=== PATIENT | male | born 1985 | race Caucasian/White ===

== ENCOUNTER 2018-04-28 14:20 | Observation (INO) | payer OTHER ==
[~2018-04-28] VITALS: Ht 170.2 cm; Wt 97.5 kg
[~2018-04-28 14:20] MED LIST changes: -GENVOYA TABLET1 EACH PO; -HYDR1TAB94 PO; -LEVFLO500 PO; -PREZISTA800 MG PO
[2018-04-28 14:46] LABS: BASOPHILS ABSOLUTE AUTO 0.09 K/mm3 (0.00-0.23); BASOPHILS PERCENT AUTO 1 % (0-2); EOSINOPHILS ABSOLUTE AUTO 0.21 K/mm3 (0.00-0.68); EOSINOPHILS PERCENT AUTO 2 % (0-6); Hematocrit 42.4 % (37.0-53.0); Hemoglobin 14.7 g/dL (13.5-17.5); IMMATURE GRAN ABSOLUTE AUTO 0.04 K/mm3 (0.00-0.10); IMMATURE GRAN PERCENT AUTO 0 % (0-1); LYMPHOCYTES ABSOLUTE AUTO 2.57 K/mm3 (0.84-5.20); LYMPHOCYTES PERCENT AUTO 27 % (21-46); MONOCYTES ABSOLUTE AUTO 0.81 K/mm3 (0.16-1.47); MONOCYTES PERCENT AUTO 8 % (4-13); Mean Corpuscular HGB 30.4 pg (26.0-34.0); Mean Corpuscular HGB Conc 34.7 g/dL (31.5-36.5); Mean Corpuscular Volume 88 fL (80-100); Mean Platelet Volume 9.7 fL (9.1-12.4); NEUTROPHILS ABSOLUTE AUTO 5.99 K/mm3 (1.96-9.15); NEUTROPHILS PERCENT AUTO 62 % (41-73); Platelet Count 224 K/mm3 (150-400); RDW Coefficient Variation 12.1 % (11.7-14.2); RDW Standard Deviation 38.7 fL (35.1-46.3); Red Blood Cell Count 4.84 M/mm3 (4.30-5.90); White Blood Cell Count 9.71 K/mm3 (4.00-11.30)
[2018-04-28] MEDS ORDERED: GENVOYA TABLET1 EACH PO (15:01)
[2018-04-28] MEDS ORDERED: PREZISTA800 MG PO (15:02)
[2018-04-28 15:03] LABS: Alanine Aminotransfer (ALT/SGP 21 U/L (12-78); Albumin, Blood 3.4 g/dL (3.4-5.0); Albumin/Globulin Ratio 0.7 (0.8-1.8); Alk Phos 90 U/L (50-136); Anion Gap 8 mmol/L (6-16); Aspartate Aminotrans (AST/SGOT 16 U/L (12-37); Bilirubin, Total 0.3 mg/dL (0.1-1.0); Blood Urea Nitrogen 12 mg/dL (8-24); Bun/Creatinine Ratio 8.7 (12.0-20.0); CO2, Blood 28 mmol/L (21-32); Calcium, Blood 8.3 mg/dL (8.5-10.1); Chloride, Blood 103 mmol/L (98-108); Creatinine, Blood 1.38 mg/dL (0.60-1.20); Globulin, Blood 4.7 g/dL (2.2-4.0); Glomerular Filtration Rate >60 (60-); Glucose, Blood 89 mg/dL (70-99); Potassium, Blood 3.4 mmol/L (3.5-5.5); Sodium, Blood 139 mmol/L (136-145); Total Protein, Blood 8.1 g/dL (6.4-8.2)
[2018-04-29 04:38] LABS: BASOPHILS ABSOLUTE AUTO 0.02 K/mm3 (0.00-0.23); BASOPHILS PERCENT AUTO 0 % (0-2); EOSINOPHILS ABSOLUTE AUTO 0.01 K/mm3 (0.00-0.68); EOSINOPHILS PERCENT AUTO 0 % (0-6); Hematocrit 37.4 % (37.0-53.0); Hemoglobin 12.9 g/dL (13.5-17.5); IMMATURE GRAN ABSOLUTE AUTO 0.06 K/mm3 (0.00-0.10); IMMATURE GRAN PERCENT AUTO 1 % (0-1); LYMPHOCYTES ABSOLUTE AUTO 1.18 K/mm3 (0.84-5.20); LYMPHOCYTES PERCENT AUTO 11 % (21-46); MONOCYTES ABSOLUTE AUTO 0.16 K/mm3 (0.16-1.47); MONOCYTES PERCENT AUTO 2 % (4-13); Mean Corpuscular HGB 30.3 pg (26.0-34.0); Mean Corpuscular HGB Conc 34.5 g/dL (31.5-36.5); Mean Corpuscular Volume 88 fL (80-100); Mean Platelet Volume 9.7 fL (9.1-12.4); NEUTROPHILS ABSOLUTE AUTO 9.54 K/mm3 (1.96-9.15); NEUTROPHILS PERCENT AUTO 87 % (41-73); Platelet Count 196 K/mm3 (150-400); RDW Coefficient Variation 12.1 % (11.7-14.2); RDW Standard Deviation 38.9 fL (35.1-46.3); Red Blood Cell Count 4.26 M/mm3 (4.30-5.90); White Blood Cell Count 10.97 K/mm3 (4.00-11.30)
[2018-04-29 04:57] LABS: Anion Gap 7 mmol/L (6-16); Blood Urea Nitrogen 10 mg/dL (8-24); Bun/Creatinine Ratio 8.6 (12.0-20.0); CO2, Blood 28 mmol/L (21-32); Calcium, Blood 8.2 mg/dL (8.5-10.1); Chloride, Blood 106 mmol/L (98-108); Creatinine, Blood 1.16 mg/dL (0.60-1.20); Glomerular Filtration Rate >60 (60-); Glucose, Blood 163 mg/dL (70-99); Sodium, Blood 141 mmol/L (136-145)
[2018-04-29] MEDS ORDERED: HYDR1TAB94 PO (14:31)
[2018-04-29] MEDS ORDERED: LEVFLO500 PO (14:31)
== END 2018-04-29 15:11 | disposition home or self-care (01) ==
LOC: ER 14:20 → SURS 14:42 → ER 14:42 → SURS 14:43 → ER 15:00 → SURS 17:20
PROVIDERS: Emergency Medicine; Surgery
PROC: 0DTJ4ZZ Resection of Appendix, Percutaneous Endoscopic Approach (ICD-10-PCS; principal; 2018-04-28 15:00)
DX: K35.3 Acute appendicitis with localized peritonitis (principal); Z88.0 Allergy status to penicillin; Z79.899 Other long term (current) drug therapy; Z87.891 Personal history of nicotine dependence
CPT/HCPCS: 36415; 80048; 80053; 83690; 85025; 96374; 96375; 99284-25; G0378; J0696; J1100; J1885; J2250; J2405; J2710; J3010; J7030; J7120

== ENCOUNTER → 2018-04-28 | Outpatient (CLI) | payer OTHER ==
[~2018-04-28] MED LIST: ALBU90OI INH; AZIT250 PO; EDURANT25 MG PO; GENVOYA TABLET1 EACH PO; HYDR1TAB94 PO; IBUP800 PO; LAMIVUDINE300 MG PO; LEVFLO500 PO; PREZISTA800 MG PO; TIVICAY50 MG PO
[2018-04-28 12:25] LABS: BASOPHILS ABSOLUTE AUTO 0.06 K/mm3 (0.00-0.23); BASOPHILS PERCENT AUTO 1 % (0-2); EOSINOPHILS PERCENT AUTO 2 % (0-6); Hematocrit 44.3 % (37.0-53.0); Hemoglobin 15.3 g/dL (13.5-17.5); IMMATURE GRAN ABSOLUTE AUTO 0.02 K/mm3 (0.00-0.10); IMMATURE GRAN PERCENT AUTO 0 % (0-1); LYMPHOCYTES ABSOLUTE AUTO 2.61 K/mm3 (0.84-5.20); LYMPHOCYTES PERCENT AUTO 29 % (21-46); MONOCYTES PERCENT AUTO 9 % (4-13); Mean Corpuscular HGB 30.1 pg (26.0-34.0); Mean Corpuscular HGB Conc 34.5 g/dL (31.5-36.5); Mean Corpuscular Volume 87 fL (80-100); NEUTROPHILS ABSOLUTE AUTO 5.31 K/mm3 (1.96-9.15); NEUTROPHILS PERCENT AUTO 59 % (41-73); Platelet Count 224 K/mm3 (150-400); RDW Coefficient Variation 12.2 % (11.7-14.2); RDW Standard Deviation 39.1 fL (35.1-46.3); Red Blood Cell Count 5.08 M/mm3 (4.30-5.90)
[2018-04-28 12:29] LABS: Bun/Creatinine Ratio 8.1 (12.0-20.0); Calcium, Blood 8.8 mg/dL (8.5-10.1); Creatinine, Blood 1.49 mg/dL (0.60-1.20); Potassium, Blood 3.2 mmol/L (3.5-5.5)
== END | disposition home or self-care (01) ==
LOC: LAB SHORT 12:19 → LAB EV 12:19
PROVIDERS: Family Medicine
DX: R10.31 Right lower quadrant pain (principal)
CPT/HCPCS: 80048; 85025

== ENCOUNTER 2018-05-11 05:08 | Emergency (ER) | payer OTHER ==
[~2018-05-11] VITALS: Ht 170.2 cm; Wt 97.5 kg
[~2018-05-11 05:08] MED LIST changes: +GENVOYA TABLET1 EACH PO; +HYDR1TAB94 PO; +LEVFLO500 PO; +PREZISTA800 MG PO
[2018-05-11 06:50] LABS: BASOPHILS ABSOLUTE AUTO 0.06 K/mm3 (0.00-0.23); BASOPHILS PERCENT AUTO 1 % (0-2); EOSINOPHILS ABSOLUTE AUTO 0.11 K/mm3 (0.00-0.68); EOSINOPHILS PERCENT AUTO 1 % (0-6); Hematocrit 43.7 % (37.0-53.0); Hemoglobin 14.8 g/dL (13.5-17.5); IMMATURE GRAN ABSOLUTE AUTO 0.04 K/mm3 (0.00-0.10); IMMATURE GRAN PERCENT AUTO 0 % (0-1); LYMPHOCYTES ABSOLUTE AUTO 1.86 K/mm3 (0.84-5.20); LYMPHOCYTES PERCENT AUTO 21 % (21-46); MONOCYTES ABSOLUTE AUTO 0.83 K/mm3 (0.16-1.47); MONOCYTES PERCENT AUTO 9 % (4-13); Mean Corpuscular HGB 29.8 pg (26.0-34.0); Mean Corpuscular HGB Conc 33.9 g/dL (31.5-36.5); Mean Corpuscular Volume 88 fL (80-100); Mean Platelet Volume 9.2 fL (9.1-12.4); NEUTROPHILS ABSOLUTE AUTO 6.17 K/mm3 (1.96-9.15); NEUTROPHILS PERCENT AUTO 68 % (41-73); Platelet Count 200 K/mm3 (150-400); RDW Coefficient Variation 12.4 % (11.7-14.2); Red Blood Cell Count 4.96 M/mm3 (4.30-5.90); White Blood Cell Count 9.07 K/mm3 (4.00-11.30)
[2018-05-11 07:08] LABS: Anion Gap 5 mmol/L (6-16); Blood Urea Nitrogen 13 mg/dL (8-24); Bun/Creatinine Ratio 12.1 (12.0-20.0); CO2, Blood 30 mmol/L (21-32); Calcium, Blood 8.8 mg/dL (8.5-10.1); Chloride, Blood 105 mmol/L (98-108); Creatinine, Blood 1.07 mg/dL (0.60-1.20); Glomerular Filtration Rate >60 (60-); Glucose, Blood 100 mg/dL (70-99); Potassium, Blood 3.9 mmol/L (3.5-5.5); Sodium, Blood 140 mmol/L (136-145)
[2018-05-11] MEDS ORDERED: Zovirax800 MG PO (07:15)
[2018-05-11] MEDS ORDERED: Norco 5-325 Ta1 EACH PO (07:23)
== END 2018-05-11 07:37 | disposition home or self-care (01) ==
LOC: ER 05:08
PROVIDERS: Physician Assistant
DX: B02.9 Zoster without complications (principal); B20 Human immunodeficiency virus [HIV] disease; Z87.891 Personal history of nicotine dependence
CPT/HCPCS: 36415; 80048; 85025; 86592; 99282

== ENCOUNTER 2020-01-27 11:56 | Emergency (ER) | payer OTHER ==
[~2020-01-27] VITALS: Ht 170.2 cm; Wt 94.6 kg
[~2020-01-27 11:56] MED LIST changes: +Norco 5-325 Ta1 EACH PO; +Vibramycin100 MG PO; +Zovirax800 MG PO
== END 2020-01-27 14:52 | disposition home or self-care (01) ==
LOC: ER 11:56
DX: Z48.01 Encounter for change or removal of surgical wound dressing (principal); Z88.0 Allergy status to penicillin; Z87.891 Personal history of nicotine dependence
CPT/HCPCS: 99282

== ENCOUNTER 2021-01-18 15:29 | Inpatient (IN) | payer OTHER ==
[~2021-01-18] VITALS: Ht 172.7 cm; Wt 86.8 kg
[2021-01-18 16:07] LABS: BASOPHILS ABSOLUTE AUTO 0.05 K/mm3 (0.00-0.23); BASOPHILS PERCENT AUTO 1 % (0-2); EOSINOPHILS ABSOLUTE AUTO 0.07 K/mm3 (0.00-0.68); EOSINOPHILS PERCENT AUTO 1 % (0-6); Hematocrit 46.4 % (37.0-53.0); Hemoglobin 15.6 g/dL (13.5-17.5); IMMATURE GRAN ABSOLUTE AUTO 0.03 K/mm3 (0.00-0.10); IMMATURE GRAN PERCENT AUTO 0 % (0-1); LYMPHOCYTES ABSOLUTE AUTO 2.04 K/mm3 (0.84-5.20); LYMPHOCYTES PERCENT AUTO 25 % (21-46); MONOCYTES ABSOLUTE AUTO 0.58 K/mm3 (0.16-1.47); MONOCYTES PERCENT AUTO 7 % (4-13); Mean Corpuscular HGB 27.3 pg (26.0-34.0); Mean Corpuscular HGB Conc 33.6 g/dL (31.5-36.5); Mean Corpuscular Volume 81 fL (80-100); Mean Platelet Volume 10.2 fL (9.1-12.4); NEUTROPHILS ABSOLUTE AUTO 5.45 K/mm3 (1.96-9.15); NEUTROPHILS PERCENT AUTO 66 % (41-73); Platelet Count 207 K/mm3 (150-400); RDW Coefficient Variation 12.4 % (11.7-14.2); RDW Standard Deviation 36.4 fL (35.1-46.3); Red Blood Cell Count 5.72 M/mm3 (4.30-5.90); White Blood Cell Count 8.22 K/mm3 (4.00-11.30)
[2021-01-18 16:29] LABS: Alanine Aminotransfer (ALT/SGP 25 U/L (12-78); Albumin, Blood 3.1 g/dL (3.4-5.0); Albumin/Globulin Ratio 0.7 (0.8-1.8); Alk Phos 69 U/L (50-136); Anion Gap 1 mmol/L (6-16); Aspartate Aminotrans (AST/SGOT 42 U/L (12-37); Bilirubin, Total 0.8 mg/dL (0.1-1.0); Blood Urea Nitrogen 8 mg/dL (8-24); Bun/Creatinine Ratio 7.6 (12.0-20.0); CO2, Blood 34 mmol/L (21-32); Calcium, Blood 8.4 mg/dL (8.5-10.1); Chloride, Blood 104 mmol/L (98-108); Creatinine, Blood 1.05 mg/dL (0.60-1.20); Globulin, Blood 4.3 g/dL (2.2-4.0); Glomerular Filtration Rate >60 (60-); Glucose, Blood 92 mg/dL (70-99); Potassium, Blood 3.8 mmol/L (3.5-5.5); Sodium, Blood 139 mmol/L (136-145); Total Protein, Blood 7.4 g/dL (6.4-8.2)
[2021-01-18 16:45] LABS: Influenza A, PCR NEGATIVE (NEGATIVE); Influenza B, PCR NEGATIVE (NEGATIVE); Resp Syncytial Virus, PCR NEGATIVE (NEGATIVE); SARS-Cov-2 (COVID-19) PCR, MMC NEGATIVE (NEGATIVE)
[2021-01-18 18:24] LABS: C-REACTIVE PROTEIN, EXT RANGE 9.22 mg/dL (0.000-0.300)
[2021-01-18 18:27] LABS: Base Excess Venous 9.2 mmol/L; Bicarbonate Venous 29.6 mmol/L (24.0-30.0); PO2 Venous 24.9 mmHg (38-42); pH Blood Venous 7.41 (7.34-7.37)
[2021-01-18 23:21] LABS: Adenovirus Not Detected (NOT DETECT); Bordetella pertussis Not Detected (NOT DETECT); Chlamydophila pneumoniae Not Detected (NOT DETECT); Coronavirus 229E Not Detected (NOT DETECT); Coronavirus HKU1 Not Detected (NOT DETECT); Coronavirus NL63 Not Detected (NOT DETECT); Coronavirus OC43 Not Detected (NOT DETECT); Human Metapneumovirus Not Detected (NOT DETECT); Human Rhinovirus/Enterovirus Not Detected (NOT DETECT); Influenza A/2009-H1 Not Detected (NOT DETECT); Influenza A/H1 Not Detected (NOT DETECT); Influenza A/H3 Not Detected (NOT DETECT); Influenza B Not Detected (NOT DETECT); Mycoplasma pneumoniae Not Detected (NOT DETECT); Parainfluenza Virus 1 Not Detected (NOT DETECT); Parainfluenza Virus 2 Not Detected (NOT DETECT); Parainfluenza Virus 3 Not Detected (NOT DETECT); Parainfluenza Virus 4 Not Detected (NOT DETECT); Respiratory Syncytial Virus Not Detected (NOT DETECT); SARS-Cov-2 (COVID-19), BioFire Not Detected (NOT DETECT)
--- NOTE | 2021-01-19 04:25 | NUR ---
SHIFT SUMMARY ASSUMED CARE OF PT AT 2230. PT IS A/OX4. HEART SOUNDS REGULAR, LUNG SOUNDS ARE DIMINISHED WITH CRACKLES IN THE BASES. PT STATES THAT DEEP BREATHS MAKE HIM COUGH SO HE AVOIDS IT. PT ON 2.5L NC. PT INDEPENDNT TO BATHROOM. PT IS WONDERING ABOUT WHEN HIS PROCEDURE WILL BE TODAY AND IF HE HAS TO BE AWAKE FOR IT OR NOT. CALL LIGHT IN REACH, BED IN LOWEST POSITON.
--- NOTE | 2021-01-19 17:31 | NUR ---
STUDENT ASSESSMENT REVIEW I HAVE REVIEWED THE STUDENT'S ASSESSMENT, CONDUCTED MY OWN ASSESSMENT, AND I AGREE WITH THE STUDENT'S FINDINGS.
--- NOTE | 2021-01-19 18:39 | NUR ---
Shift Summary, Patient is A/OX4 to person, place, time, and event. Patient is pleasent and cooperative with care. He has been independent in room. Patient using nasal cannula at 3LPM. He has slight dyspnea on exertion resolved with rest. Patient continues on IV antibiotics. No acute changes this shift. Patient is currently in his room resting in bed.
[2021-01-19 23:07] LABS: % CD 4 POS. LYMPH. 6.5 % (30.8-58.5); ABSOLUTE CD 4 HELPER 111 /uL (359-1519); BASO (ABSOLUTE) 0.1 x10E3/uL (0.0-0.2); BASOS 1 % (Not Estab.); EOS 0 % (Not Estab.); HEMATOCRIT 44.8 % (37.5-51.0); HEMOGLOBIN 15.3 g/dL (13.0-17.7); IMMATURE GRANULOCYTES 0 % (Not Estab.); LYMPHS 19 % (Not Estab.); LYMPHS (ABSOLUTE) 1.7 x10E3/uL (0.7-3.1); MCH 27.7 pg (26.6-33.0); MCHC 34.2 g/dL (31.5-35.7); MCV 81 fL (79-97); MONOCYTES 4 % (Not Estab.); MONOCYTES(ABSOLUTE) 0.4 x10E3/uL (0.1-0.9); NEUTROPHILS 76 % (Not Estab.); NEUTROPHILS (ABSOLUTE) 6.8 x10E3/uL (1.4-7.0); PLATELETS 202 x10E3/uL (150-450); RBC 5.52 x10E6/uL (4.14-5.80); RDW 12.5 % (11.6-15.4); WBC 8.9 x10E3/uL (3.4-10.8)
--- NOTE | 2021-01-20 05:22 | NUR ---
PATIENT ANXIOUS ABOUT WHAT THE CARDIOPULMONARY LAB WILL FIND AFTER HIS BRONCHOSCOPY AND BIOPSY ARE COMPLETED THIS MORNING. [employer]'S ANXIETY ABOUT FINANCIAL WORRIES AND HAVING NO INSURANCE ARE CONTRIBUTING GREATLY HE FEELS REALLY HOPELESS ABOUT BEING ABLE TO ENTER TREATMENT. HE IS HOPING FOR SOMETHING TO HELP HIP SLEEP TONIGHT. 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
--- NOTE | 2021-01-20 12:57 | NUR ---
01/20/21 1257 Joselito Dunlap History, Chart, Medications and Allergies reviewed before start of procedure. MONITOR INTACT WITH CONTINUOUS PULSE OXIMETRY AND INTERMITTENT BP. 3-LEAD EKG REVIEWED WITH PHYSICIAN PRIOR TO START OF PROCEDURE. O2 VIA N/C INTACT THROUGHOUT SEDATION/PROCEDURE. PT NUMB PER PROTOCOL FOR PROCEDURE.
[2021-01-20 12:59] LABS: International Normalized Ratio 1.05; Prothrombin Time Results 11.3 Sec (9.7-11.5)
--- NOTE | 2021-01-20 14:25 | NUR ---
PATIENT RETURNED FROM BRONCHOSCOPY VIA [facility], ABLE TO TRANSFER FROM [facility] TO BED WITH 1 PERSON ASSIST. DENIES PAIN, WANTS TO DRINK; EDUCATED THAT HE CANNOT DRINK ANYTHING UNTIL 1530 PER PROVIDER'S INSTRUCTIONS, VERBALIZED UNDERSTANDING. SPEAKING IN FULL SENTENCES, ORIENTED X 3.
--- NOTE | 2021-01-20 17:03 | NUR ---
Met with pt today, he was very tired and our visit was short. He is still very SOB with minimal activity. Bronchoscopy done, biopsy performed. It appears Jazmyn in Care Management is working on much related to his HIV meds, follow up care, etc. Plan to follow up with pt tomorrow, see where Palliative can help fill in any care need gaps. Will also check with Jazmyn tomorrow.
[2021-01-20 17:10] LABS: LOG10 HIV-1 RNA 4.986 (.)
--- NOTE | 2021-01-20 18:22 | NUR ---
SHIFT SUMMARY: NO ACUTE EVENTS. DENIED PAIN THIS SHIFT. HAS INTERMITTENT COUGH WITH SMALL AMT THICK CLEAR SPUTUM. SPECIMENS OBTAINED DURING BRONCHOSCOPY. O2 @ 2.5-3 L/MIN NC, VSS AFTER PROCEDURE. TOLERATED PO INTAKE FOR DINNER, NO DYSPHAGIA NOTED. INDEPENDENT IN ROOM. IS HOPING TO GET SOME SLEEP TONIGHT.
--- NOTE | 2021-01-20 19:10 | NUR ---
ASSUMED CARE RECEIVED REPORT FROM SARAH ANDREA. PT RESTING IN NO ACUTE DISTRESS. APPEARS SOB WHILE SPEAKING IN SENTENCES. ON 2.5L/NC, O2 SATS WNL. PT DENIES NEEDS AT THIS TIME. CALL LIGHT, POSSESSIONS IN REACH.
[2021-01-20 22:10] LABS: QUANTIFERON MITOGEN VALUE >10.00 IU/mL (.); QUANTIFERON TB1 AG VALUE 0.09 IU/mL (.); QUANTIFERON TB2 AG VALUE 0.06 IU/mL (.); QUANTIFERON-TB GOLD PLUS Negative (Negative)
--- NOTE | 2021-01-21 07:35 | NUR ---
METAL TILE LATHER SUMMARY PT RESTING, IN NO ACUTE DISTRESS. VS REVIEWED,WNL. SLEPT T/O NIGHT, TOLERATED ORAL INTAKE FAIRLY. NO ACUTE CHANGES IN CONDITION TO REPORT OVERNIGHT. O2 SATS REMAIN STABLE ON 2.5-3L/NC. DENIES NEEDS. CALL LIGHT, POSSESSIONS IN REACH, BED IN LOW POSITION. REPORT GIVEN TO SARAH ANDREA.
--- NOTE | 2021-01-21 11:54 | NUR ---
RECEIVED MESSAGE FOR DR. RAMSEY TO CALL DR. MEZA REGARDING PT'S LUNG PATHOLOGY RESULTS. SPOKE TO DR RAMSEY, RELAYED MESSAGE.
[2021-01-21 14:18] LABS: PCO2 Arterial 35.5 mmHg (35-45); PO2 Arterial 69.5 mmHg (80-100); pH Blood Arterial 7.46 (7.35-7.45)
--- NOTE | 2021-01-21 16:34 | NUR ---
After working on the prescription program for 1 year coverage, I spoke to Vanesa who is already off work for the day, but she did inform me that pt's insurance will cover these medications; however he will have to get them from mail order, as none of the local pharmacies carry them. Will discuss this with the patient, as he will need to choose one program or the other. The patient told me he doesn't know if he has prescription insurance, as did Felipe in pharmacy so I wrongly assumed he does not have insurance, even though his face sheet shows insurance. Will wait until care managers return in the am before moving forward.
--- NOTE | 2021-01-21 18:31 | NUR ---
SHIFT SUMMARY: NO ACUTE EVENTS. DENIED PAIN, BUT DID ENDORSE SOME DISCOMFORT WHEN COUGHING, DECLINED OFFERED PAIN MEDICATIONS. INDEPENDENT IN ROOM. BREATH SOUNDS DIM THROUGHOUT, BUT AIR MOVEMENT SOUNDS SLIGHTLY IMPROVED. GOOD APPETITE. ON OXYGEN AT 2.5 L/MIN NC, WILL ATTEMPT TO TITRATE DOWN. BACTRIM IMCREASED TO 3 TABLETS, PT STATED THAT THIS MAKES HIM NAUSEATED, OFFERED ANTIEMETIC. PALLIATIVE CARE AND CARE MANAGERS ARE LOOKING INTO FINDING AID FOR PT TO BE ABLE TO AFFORD HIS MEDICATIONS AT D/C.
--- NOTE | 2021-01-21 19:05 | NUR ---
ASSUMED CARE RECEIVED REPORT FROM SARAH ANDREA. PT RESTING, IN NO ACUTE DISTRESS. NO ACUTE NEEDS ASSESED. CALL LIGHT IN REACH.
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
[2021-01-22 04:47] LABS: BASOPHILS ABSOLUTE AUTO 0.01 K/mm3 (0.00-0.23); BASOPHILS PERCENT AUTO 0 % (0-2); EOSINOPHILS PERCENT AUTO 0 % (0-6); Hematocrit 40.6 % (37.0-53.0); Hemoglobin 13.5 g/dL (13.5-17.5); IMMATURE GRAN ABSOLUTE AUTO 0.11 K/mm3 (0.00-0.10); IMMATURE GRAN PERCENT AUTO 1 % (0-1); LYMPHOCYTES ABSOLUTE AUTO 1.05 K/mm3 (0.84-5.20); LYMPHOCYTES PERCENT AUTO 9 % (21-46); MONOCYTES ABSOLUTE AUTO 0.36 K/mm3 (0.16-1.47); MONOCYTES PERCENT AUTO 3 % (4-13); Mean Corpuscular HGB 27.2 pg (26.0-34.0); Mean Corpuscular HGB Conc 33.3 g/dL (31.5-36.5); Mean Corpuscular Volume 82 fL (80-100); Mean Platelet Volume 10.7 fL (9.1-12.4); NEUTROPHILS ABSOLUTE AUTO 9.72 K/mm3 (1.96-9.15); NEUTROPHILS PERCENT AUTO 86 % (41-73); Platelet Count 238 K/mm3 (150-400); RDW Coefficient Variation 12.5 % (11.7-14.2); RDW Standard Deviation 37.2 fL (35.1-46.3); Red Blood Cell Count 4.97 M/mm3 (4.30-5.90); White Blood Cell Count 11.25 K/mm3 (4.00-11.30)
[2021-01-22 05:06] LABS: Anion Gap 4 mmol/L (6-16); Blood Urea Nitrogen 15 mg/dL (8-24); Bun/Creatinine Ratio 14.4 (12.0-20.0); CO2, Blood 26 mmol/L (21-32); Calcium, Blood 7.9 mg/dL (8.5-10.1); Chloride, Blood 106 mmol/L (98-108); Creatinine, Blood 1.04 mg/dL (0.60-1.20); Glomerular Filtration Rate >60 (60-); Glucose, Blood 117 mg/dL (70-99); Potassium, Blood 4.3 mmol/L (3.5-5.5); Sodium, Blood 136 mmol/L (136-145)
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
[2021-01-22] MEDS ORDERED: PRED20 PO (11:15)
[2021-01-22] MEDS ORDERED: SULTRIDS PO (11:16)
[2021-01-22] MEDS ORDERED: PREZISTA800 MG PO (11:17)
[2021-01-22] MEDS ORDERED: TRAZ50 PO (11:17)
[2021-01-22] MEDS ORDERED: GENVOYA TABLET1 EAC1 PO (11:18)
--- NOTE | 2021-01-22 16:37 | NUR ---
DISCHARGE SUMMARY PIV REMOVED, PAPERWORK REVIEWED, MEDS FAXED TO [facility]. MOM AT BS. [facility] CAME WITH OXYGEN, PT STATES HE ALREADY HAS ALL OXYGEN SUPPLIES AT HOME, DECLINED ANY FURTHER SUPPLIES. MOM AT . F/U APPT MADE WITH DR CHARLES, PT AWARE OF DATE AND TIME. [facility] SPEARS TO CALL HIM WITH PCP APPT. WHEELED OUT TO CAR BY WC WITH HIS MOM
--- NOTE | 2021-01-23 11:49 | NUR ---
left pt a message for follow up care and to assist with medications. Will follow for community support.
--- NOTE | 2021-01-23 11:55 | NUR ---
message left with [facility]. Will confirm current resources and notify pt and see if he wants contact. Will update doctor fernandez on our follow up.
== END 2021-01-22 16:35 | disposition home or self-care (01) | DRG 974 ==
LOC: ER 15:29 → MEDS 20:17 → ENPENDDIS 01-22 10:30 → MEDS 01-22 16:35
PROVIDERS: Emergency Medicine; Internal Medicine; Internal Medicine Pulmonary Disease; Physician Assistant; ADMIT Internal Medicine
PROC: 0B9D8ZX Drainage of Right Middle Lung Lobe, Via Natural or Artificial Opening Endoscopic, Diagnostic (ICD-10-PCS; principal; 2021-01-20 13:00)
PROC: 0BD98ZX Extraction of Lingula Bronchus, Via Natural or Artificial Opening Endoscopic, Diagnostic (ICD-10-PCS; 2021-01-20 13:00)
DX: A41.9 Sepsis, unspecified organism (principal); J96.01 Acute respiratory failure with hypoxia; B20 Human immunodeficiency virus [HIV] disease; B59 Pneumocystosis; Z20.822 Contact with and (suspected) exposure to COVID-19; Z51.5 Encounter for palliative care; R19.7 Diarrhea, unspecified; G43.909 Migraine, unspecified, not intractable, without status migrainosus; E66.9 Obesity, unspecified; K21.9 Gastro-esophageal reflux disease without esophagitis; J45.909 Unspecified asthma, uncomplicated; M54.5 Low back pain; G89.29 Other chronic pain; Z68.29 Body mass index [BMI] 29.0-29.9, adult; Z87.442 Personal history of urinary calculi; Z91.14 Patient's other noncompliance with medication regimen; Z90.49 Acquired absence of other specified parts of digestive tract; Z98.890 Other specified postprocedural states; Z88.0 Allergy status to penicillin; Z87.891 Personal history of nicotine dependence; Z79.2 Long term (current) use of antibiotics
CPT/HCPCS: 0202U; 0241U; 36415; 36600; 71045; 71250; 80048; 80053; 82803; 83605; 83615; 85025; 85610; 86140; 86361; 86403; 86480; 86592; 87015; 87040; 87070; 87075; 87102; 87116; 87147; 87205; 87206; 87305; 87536; 88108; 88305; 88312; 94644; 94760; 94761; 96365; 96375; 99284-25; A9270; J0171; J0456; J0696; J1650; J2250; J2405; J2920; J2930; J3010; J3480; J7050; J7120; J7512

== ENCOUNTER 2022-04-10 18:47 | Emergency (ER) | payer OTHER ==
[~2022-04-10] VITALS: Ht 177.8 cm; Wt 99.8 kg
[~2022-04-10 18:47] MED LIST changes: +GENVOYA TABLET1 EAC1 PO; +PRED20 PO; +SULTRIDS PO; +TRAZ50 PO
== END 2022-04-10 21:06 | disposition home or self-care (01) ==
LOC: ER 18:47
DX: S01.511A Laceration without foreign body of lip, initial encounter (principal); W01.190A Fall on same level from slipping, tripping and stumbling with subsequent striking against furniture, initial encounter; J44.9 Chronic obstructive pulmonary disease, unspecified; Z21 Asymptomatic human immunodeficiency virus [HIV] infection status; Z88.0 Allergy status to penicillin; Z79.899 Other long term (current) drug therapy; Z87.891 Personal history of nicotine dependence
CPT/HCPCS: 12011; 99282-25

== ENCOUNTER 2023-12-27 14:43 | Emergency (ER) | payer OTHER ==
[~2023-12-27] VITALS: Ht 175.3 cm; Wt 111.6 kg
[2023-12-27 14:55] VITALS: BP 125/72
[2023-12-27] MEDS ORDERED: Monodox100 MG PO (16:31)
== END 2023-12-27 16:39 | disposition home or self-care (01) ==
LOC: ER 14:43
DX: L60.0 Ingrowing nail (principal); L03.031 Cellulitis of right toe; J44.89 Other specified chronic obstructive pulmonary disease; Z21 Asymptomatic human immunodeficiency virus [HIV] infection status; Z87.891 Personal history of nicotine dependence; Z79.52 Long term (current) use of systemic steroids; Z79.899 Other long term (current) drug therapy; Z88.0 Allergy status to penicillin
CPT/HCPCS: 11765; 99283-25

== ENCOUNTER → 2025-02-07 | Outpatient (CLI) | payer OTHER ==
[~2025-02-07] MED LIST changes: +Monodox100 MG PO
[2025-02-07 16:18] LABS: BASOPHILS ABSOLUTE AUTO 0.08 K/mm3 (0.00-0.23); BASOPHILS PERCENT AUTO 1 % (0-2); EOSINOPHILS ABSOLUTE AUTO 0.12 K/mm3 (0.00-0.68); EOSINOPHILS PERCENT AUTO 2 % (0-6); Hematocrit 43.8 % (37.0-53.0); Hemoglobin 14.9 g/dL (13.5-17.5); IMMATURE GRAN ABSOLUTE AUTO 0.02 K/mm3 (0.00-0.10); IMMATURE GRAN PERCENT AUTO 0 % (0-1); LYMPHOCYTES PERCENT AUTO 24 % (21-46); MONOCYTES ABSOLUTE AUTO 0.58 K/mm3 (0.16-1.47); MONOCYTES PERCENT AUTO 7 % (4-13); Mean Corpuscular HGB 29.8 pg (26.0-34.0); Mean Corpuscular Volume 88 fL (80-100); Mean Platelet Volume 10.3 fL (9.1-12.4); NEUTROPHILS ABSOLUTE AUTO 5.43 K/mm3 (1.96-9.15); NEUTROPHILS PERCENT AUTO 66 % (41-73); Platelet Count 223 K/mm3 (150-400); RDW Coefficient Variation 12.2 % (11.7-14.2); RDW Standard Deviation 39.4 fL (35.1-46.3); White Blood Cell Count 8.23 K/mm3 (4.00-11.30)
[2025-02-07 19:00] LABS: Alanine Aminotransfer (ALT/SGP 41 U/L (12-78); Albumin, Blood 3.6 g/dL (3.4-5.0); Albumin/Globulin Ratio 1.2 (0.8-1.8); Alk Phos 96 U/L (50-136); Anion Gap 5 mmol/L (3-11); Aspartate Aminotrans (AST/SGOT 27 U/L (12-37); Bilirubin, Total 0.6 mg/dL (0.1-1.0); Blood Urea Nitrogen 14 mg/dL (8-24); Bun/Creatinine Ratio 11.2 (12.0-20.0); CHOL/HDL RATIO 3.6; CO2, Blood 32 mmol/L (21-32); Calcium, Blood 8.8 mg/dL (8.5-10.1); Chloride, Blood 106 mmol/L (98-108); Cholesterol 107 mg/dL (50-200); Creatinine, Blood 1.25 mg/dL (0.60-1.20); Globulin, Blood 3.1 g/dL (2.2-4.0); Glomerular Filtration Rate 76 (60-); Glucose, Blood 92 mg/dL (70-99); HDL Cholesterol 30 mg/dL (>39); LDL/HDL RATIO 0.9; Low Density Lipoprotein Chol 28 mg/dL (0-110); Potassium, Blood 3.7 mmol/L (3.5-5.5); Sodium, Blood 139 mmol/L (136-145); Total Protein, Blood 6.7 g/dL (6.4-8.2); Triglycerides 246 mg/dL (30-140); Very Low Density Lipoprot Chol 49 mg/dL (6-28)
== END | disposition home or self-care (01) ==
LOC: LAB SHORT 14:00 → LAB 14:00
PROVIDERS: Family Medicine
DX: E78.2 Mixed hyperlipidemia (principal)
CPT/HCPCS: 80053; 80061; 83036; 85025